=== PATIENT | female | born 1960 | race Caucasian/White ===

== ENCOUNTER 2022-11-18 09:25 | Observation (INO) | payer OTHER ==
[~2022-11-18] VITALS: Ht 172.7 cm; Wt 70.6 kg
[2022-11-18 09:52] LABS: BASO % 0.7 % (0.0-2.0); EOS # 0.1 K/mm3 (0.0-0.7); EOS % 2.7 % (0.0-4.0); GRAN # 2.3 K/mm3 (1.4-6.5); GRAN % 50.1 % (42.2-75.2); HEMATOCRIT 41.7 % (37.0-47.0); HEMOGLOBIN 14.5 g/dl (12.5-16.0); LYMPH # 1.5 K/mm3 (1.2-3.4); LYMPH % 33.6 % (20.0-51.0); MEAN CELL VOLUME 91 fl (80.0-100.0); MEAN CORPUSCULAR HEMOGLOBIN 32 pg (27-31); MEAN CORPUSCULAR HGB CONC 35 g/dl (33.0-37.0); MONO # 0.6 K/mm3 (0.1-0.6); MONO % 12.7 % (1.7-9.3); PLATELET COUNT 257 K/mm3 (130-400); RED BLOOD COUNT 4.59 M/mm3 (4.10-5.30); REDCELL DISTRIBUTION WIDTH-CV 12.7 % (11.5-14.5)
[2022-11-18 10:11] LABS: ALANINE AMINOTRANSFERASE 23 U/L (0-55); ALBUMIN 3.7 gm/dL (3.4-4.8); ALKALINE PHOSPHATASE 30 U/L (40-150); ANION GAP 11 mmol/L (7-16); AST,SGOT 23 U/L (5-34); BILIRUBIN,TOTAL 0.4 mg/dL (0.2-1.2); BLOOD UREA NITROGEN 13 mg/dL (10-20); CALCIUM 9.4 mg/dL (8.4-10.2); CARBON DIOXIDE 25 mmol/L (23-31); CHLORIDE 107 mmol/L (98-107); CREATININE, serum 0.83 mg/dL (0.57-1.11); GLUCOSE 106 mg/dL (70-99); POTASSIUM 3.4 mmol/L (3.5-4.5); SODIUM 143 mmol/L (136-145); TOTAL PROTEIN 6.8 gm/dL (6.2-8.1)
[2022-11-18 10:20] LABS: TROPONIN-I < 0.010 ng/mL (0.00-0.033)
[2022-11-18] MEDS ORDERED: NORVASC 5MG5 MG/TAB PO (12:44)
[2022-11-18] MEDS ORDERED: HCTZ 25MG TAB25 MG PO (12:44)
[2022-11-18] MEDS ORDERED: PROVENTIL0.09 MG/A1 IH (12:45)
[2022-11-18] MEDS ORDERED: 00186-0370-20 IH (12:45)
[2022-11-18] MEDS ORDERED: HIZENTRA SQ (12:46)
[2022-11-18] MEDS ORDERED: ZYRTEC10MGSGL PO (12:47)
[2022-11-18] MEDS ORDERED: FLOVENT DI50 MCG/Act IH (12:47)
[2022-11-18] MEDS ORDERED: WELLBUTRIN SR150 M1 PO (12:48)
[2022-11-18] MEDS ORDERED: LEXAPRO 10MG10 MG PO (12:48)
--- NOTE | 2022-11-18 14:46 | NUR ---
PATIENT ADMITTED TO ROOM 355 FROM ER ACCOMPANIED BY ER STAFF. PATIENT IS ALERT AND ORIENTED X4. DENIES PAIN. NEUROS WNL, BUT PATIENT NOTED TO HAVE NYSTAGMUS. DENIES ANY NEEDS. AT BEDSIDE. ORIENTED TO ROOM AND CALL LIGHT.
[2022-11-18 15:10] VITALS: BP 138/72; PULSE 60; TEMP 97.8
[2022-11-18] MEDS ORDERED: FLONASEALLERGY NS (17:18)
[2022-11-18] MEDS ORDERED: ASTELIN NASAL S34 ML NS (17:27)
[2022-11-18] MEDS ORDERED: EPIPEN 2-PAK1 MG/ML IM (17:27)
--- NOTE | 2022-11-18 17:43 | NUR ---
PER PATIENT, SHE TAKES HIZENTRA, AN INFUSION, ONCE PER WEEK ON THURSDAY. HUYEN ANDRADE AND DR. NÚÑEZ UPDATED. PER DR. NÚÑEZ, PATIENT CAN CONTINUE TO TAKE MEDICATION HERE ORDERED IF SHE IS ABLE TO ADMINISTER IT HERSELF. PATIENT HAS HER OWN PUMP AND IS AGREEABLE TO ADMINISTER HER OWN MEDICATION. PHARMACISTANNABELLE UPDATED, ORDER FOR PATIENT'S OWN MED ENTERED BY THIS RN PER DR. NÚÑEZ, PHARMACY TO VERIFY MEDICATION. PATIENT'S OWN INFUSION PUMP PATIENT AGREEMENT COMPLETED AND ATTACHED TO FRONT OF CHART.
[2022-11-18 20:18] VITALS: BP 126/73; PULSE 81; TEMP 98
--- NOTE | 2022-11-18 21:56 | NUR ---
Pt's assessment completed around 2029. at bedside. Pt is A&O x4. Nystagmus noticed during assessment, besides this sign pt has Neurochecks WNL. RAC INT is CDI. Pt denies any other need or concerns. Denies nausea, and reports decreased dizziness and vertigo at this time compared to when she was admitted to the unit. Belongings and call light are within reach.
[2022-11-18 23:55] VITALS: BP 134/83; PULSE 72; TEMP 98.2
[2022-11-19 03:52] VITALS: BP 128/80; PULSE 81; TEMP 98.1
[2022-11-19 06:58] LABS: BASO % 0.4 % (0.0-2.0); EOS # 0.1 K/mm3 (0.0-0.7); GRAN # 2.4 K/mm3 (1.4-6.5); GRAN % 47.9 % (42.2-75.2); HEMATOCRIT 41.4 % (37.0-47.0); HEMOGLOBIN 13.8 g/dl (12.5-16.0); LYMPH # 1.7 K/mm3 (1.2-3.4); LYMPH % 33.7 % (20.0-51.0); MEAN CELL VOLUME 94 fl (80.0-100.0); MEAN CORPUSCULAR HEMOGLOBIN 31 pg (27-31); MEAN CORPUSCULAR HGB CONC 33 g/dl (33.0-37.0); MEAN PLATELET VOLUME 10.2 fl (7.4-10.4); MONO # 0.8 K/mm3 (0.1-0.6); MONO % 15.8 % (1.7-9.3); PLATELET COUNT 252 K/mm3 (130-400); RED BLOOD COUNT 4.43 M/mm3 (4.10-5.30); REDCELL DISTRIBUTION WIDTH-CV 12.9 % (11.5-14.5)
[2022-11-19] MEDS ORDERED: ASPIRIN 81M81 MG/TA2 PO (06:59)
[2022-11-19 07:19] LABS: CALCIUM 9.5 mg/dL (8.4-10.2); CREATININE, serum 0.78 mg/dL (0.57-1.11); MAGNESIUM 2.1 mg/dL (1.6-2.6)
[2022-11-19 07:26] LABS: POTASSIUM 2.9 mmol/L (3.5-4.5)
[2022-11-19 07:35] VITALS: BP 140/77; PULSE 68; TEMP 98.5
[2022-11-19 07:45] LABS: CHOLESTEROL RISK RATIO 3.4
--- NOTE | 2022-11-19 08:43 | NUR ---
PRABHU met with the patient to discuss discharge plan. The patient lives in [place], [place] with her , Devonte (ph#[phone]). Her and her are in [place], staying with her sister, due to her mother passing away recently. They are clearing out a storage unit. She reports independence with ADLs and does not have any DME. The patient's PCP is Dr. Crowe and she plans to obtain her medications from [facility]. The patient does not have a DPOA-HC, but she states that she does have one completed and that it designates her . The patient and her plan to return back to their home in [place] upon discharge. No additional needs at this time. *Discharge plan: home with *
[2022-11-19 11:50] VITALS: BP 137/78; PULSE 76; TEMP 98
[2022-11-19] MEDS ORDERED: VALIUM 5MG T5 MG/TAB PO (14:50)
--- NOTE | 2022-11-19 14:56 | NUR ---
Initial visit; Patient thanked Splicing Machine Operator for looking in on her and offering spiritual care. Patient and her talked about her getting released today and going home to [place]. April said she has had a good stay.
--- NOTE | 2022-11-19 15:00 | NUR ---
PATIENT (WITH PRESENT) GIVEN DISCHARGE INSTRUCTION SAND EDUCATION. ALL QUESTIONS ANSWERED. NEW MEDICATION REVIEWED. IV AND TELE REMOVED.
--- NOTE | 2022-11-19 15:10 | NUR ---
PATIENT TAKEN VIA WHEELCHAIR TO ER ENTRANCE BY PCT. PATIENT LEFT IN STABLE CONDITION IN THE CARE OF HER .
== END 2022-11-19 15:10 | disposition home or self-care (01) ==
LOC: COL.ER 09:25 → MEDICAL 12:06
PROVIDERS: Emergency Medicine; Physician Assistant; ADMIT Internal Medicine
DX: R42 Dizziness and giddiness (principal); E87.6 Hypokalemia; F32.A Depression, unspecified; I10 Essential (primary) hypertension; E78.5 Hyperlipidemia, unspecified; J45.909 Unspecified asthma, uncomplicated; D80.3 Selective deficiency of immunoglobulin G [IgG] subclasses; Z20.822 Contact with and (suspected) exposure to COVID-19; Z79.899 Other long term (current) drug therapy; Z79.51 Long term (current) use of inhaled steroids
CPT/HCPCS: G0378; J1650; J2765; J7120; Q9967